=== PATIENT | female | born 1965 | race Caucasian/White ===

== ENCOUNTER 2018-01-04 12:47 | Emergency (ER) | payer BC, OTHER ==
[2018-01-04] MEDS ORDERED: Ondansetron HCl/PF 4 MG/2 ML Vial ONE (13:06)
--- NOTE | 2018-01-04 14:26 | RAD ---
LEFT HIP TWO VIEWS: History: Hip pain. FINDINGS: Post-operative change of the lower lumbar spine are noted. There is some minimal arthritic change of the hip. There are no signs of fracture. IMPRESSION: No evidence of fracture. Minimal arthritic changes noted with minimal joint space narrowing. POS: JUAN M
--- NOTE | 2018-01-04 14:27 | RAD ---
LEFT KNEE FOUR VIEWS: History: Injury. FINDINGS: Some minimal medial compartment narrowing. There are no signs of fracture, dislocation, or joint effu ayad. IMPRESSION: No acute injury. POS: LAUREN
== END 2018-01-04 16:30 | disposition home or self-care (01) ==
LOC: ERS 12:47
DX: M79.605 Pain in left leg (principal)
CPT/HCPCS: 96374; 96375; J2270; J2405